=== PATIENT | male | born 1970 | race Caucasian/White ===

== ENCOUNTER → 2021-04-27 | Outpatient (CLI) | payer OTHER ==
--- NOTE | 2021-04-27 12:52 | RAD ---
XR ELBOW COMPLETE_RIGHT 3+ VIEWS History: Fell on elbow 2 weeks ago. Cellulitis. Comparison: None. Technique: 3 views of the right elbow. Findings: Osseous mineralization is normal. No acute fracture or dislocaton. Mild degenerative osteophytes at t he olecranon. No aggressive osseous erosive process. No elbow effusion. Soft tissue swelling overlyin g the olecranon and diffuse subcutaneous fat stranding. Impression: 1. Diffuse subcutaneous fat stranding compatible with edema or cellulitis and soft tissue prominence overlying the olecranon may represent olecranon bursitis. Electronically signed by: Placido Mota MD (04/27/2021 12:49 PM) [facility]
== END ==
LOC: RAD 12:20
PROVIDERS: ATTEND Nurse Practitioner Family
DX: M25.721 Osteophyte, right elbow (principal); L03.113 Cellulitis of right upper limb; M79.89 Other specified soft tissue disorders
CPT/HCPCS: 73080

== ENCOUNTER → 2021-05-20 | Outpatient (CLI) | payer OTHER ==
[2021-05-20 15:32] LABS: BASO % 1 % (0-3); EOS # 0.3 x10^3/uL (0.0-0.7); EOS % 4 % (0-3); HEMATOCRIT 44.2 % (39.0-53.0); HEMOGLOBIN 15.3 g/dL (13.0-17.5); LYMPH # 2.8 x10^3/uL (1.0-4.8); LYMPH % 36 % (24-48); MEAN CORPUSCULAR HEMOGLOBIN 31 pg (25-35); MEAN CORPUSCULAR HGB CONC 35 g/dL (31-37); MEAN CORPUSCULAR VOLUME 89 fL (79-100); MONO # 0.5 x10^3/uL (0.0-1.1); MONO % 6 % (0-9); NEUT # 4.3 x10^3uL (1.8-7.7); NEUT % 54 % (31-73); PLATELET COUNT 177 x10^3/uL (140-400); RED BLOOD COUNT 4.98 x10^6/uL (4.30-5.70); RED CELL DISTRIBUTION WIDTH 13.1 % (11.5-14.5); WHITE BLOOD COUNT 7.9 x10^3/uL (4.0-11.0)
[2021-05-20 15:51] LABS: ALBUMIN 3.6 g/dL (3.4-5.0); ALBUMIN/GLOBULIN RATIO 0.9 (1.0-1.7); CALCIUM 8.5 mg/dL (8.5-10.1); CREATININE 0.7 mg/dL (0.7-1.3); GFR 119.4; POTASSIUM 3.7 mmol/L (3.5-5.1); TOTAL BILIRUBIN 0.4 mg/dL (0.2-1.0); TOTAL PROTEIN 7.5 g/dL (6.4-8.2)
[2021-05-21 20:49] LABS: CHOLESTEROL/HDL RATIO 5.1; FREE T4 0.87 ng/dL (0.76-1.46); THYROID STIM HORMONE (TSH) 0.486 uIU/mL (0.358-3.740)
== END ==
LOC: LAB 14:57
PROVIDERS: ATTEND Physician Assistant
DX: Z00.00 Encounter for general adult medical examination without abnormal findings (principal); I10 Essential (primary) hypertension; R00.2 Palpitations; R06.00 Dyspnea, unspecified; R35.0 Frequency of micturition
CPT/HCPCS: 80053; 80061; 84439; 84443; 84484; 85025; G0103; 36415